=== PATIENT | female | born 1985 | race Caucasian/White ===

== ENCOUNTER 2020-04-27 16:20 | Emergency (ER) | payer OTHER, SELFPAY ==
[2020-04-27 16:29] VITALS: BP 120/78; PULSE 90; RESP 16; TEMP 36.5; O2SAT 98; BMI 28.3
--- NOTE | 2020-04-27 17:31 | ED_ITS ---
HPI - URI/Sore Throat General Chief Complaint: Upper Respiratory Symptoms <MARIE Valle - Last Filed: 04/27/20 17:45> Stated Complaint: cough, rash <MARIE Valle - Last Filed: 04/27/20 17:45> Time Seen by Provider: 04/27/20 17:21 <MARIE Valle - Last Filed: 04/27/20 17:45> Source: patient <MARIE Valle - Last Filed: 04/27/20 17:45> Mode of arrival: ambulatory <MARIE Valle - Last Filed: 04/27/20 17:45> Limitations: no limitations <MARIE Valle Last Filed: 04/27/20 17:45> History of Present Illness HPI Narrative: 34 y/o male presenting with dry cough for the last 3 days and raised patchy red rash on her abdomen. It is mildly itchy but not painful. She has had no fever, chills, SOB, chest pain. No known exposure to COVID-19. No new detergents, soaps, creams. No history of allergies. No throat swelling or wheezing. She has been taking benadryl with improvement but then the rash comes back. <MARIE Valle - Last Filed: 04/27/20 17:45> MD elicited complaint: cough <MARIE Valle - Last Filed: 04/27/20 17:45> Onset (ago): day(s) (3) <MARIE Valle Last Filed: 04/27/20 17:45> Consistency: intermittent and progressively worsening <MARIE Valle - Last Filed: 04/27/20 17:45> Severity: moderate <MARIE Valle Last Filed: 04/27/20 17:45> Able to tolerate fluids by mouth: Yes <MARIE Valle Last Filed: 04/27/20 17:45> Exacerbating factors: nothing <MARIE Valle Last Filed: 04/27/20 17:45> Relieving factors: OTC cold medicine <MARIE Valle Last Filed: 04/27/20 17:45> Associated symptoms: chills and rash <MARIE Valle - Last Filed: 04/27/20 17:45> Treatments prior to arrival: none <MARIE Valle - Last Filed: 04/27/20 17:45> Related Data Home Medications: Previous Rx's Medication Instructions Recorded famotidine [Pepcid] 40 mg PO DAILY #10 tab 04/27/20 loratadine [Claritin] 10 mg PO DAILY #10 tab 04/27/20 <MARIE Valle - Last Filed: 04/27/20 17:45> Allergies/Adverse Reactions: Allergies Allergy/AdvReac Type Severity Reaction Status Date / Time From DEPO-PROVERA Allergy Unknown RASH Uncoded 02/28/20 17:08 <MARIE Valle - Last Filed: 04/27/20 17:45> Review of Systems Review of Systems: Constitutional: No Fever, + Chills ENT/Mouth: No sore throat, No Rhinorrhea, No Swallowing Difficulty Eyes: No Eye Pain, No Swelling, No Redness Cardiovascular: No Chest Pain, No SOB, No Orthopnea, No Edema Respiratory: + Cough, No Sputum, No Wheezing, No dyspnea Gastrointestinal: No Nausea, No Vomiting, No Diarrhea, No abdominal Pain Genitourinary: No Dysuria, No Urinary Frequency, No Hematuria Musculoskeletal: No joint pain, + Myalgias (mild) Skin: NO Skin Lesions, + rash Neuro: No Weakness, No Numbness, No Dizziness, No Headache Psych: No Anxiety/Panic, No Depression Heme/Lymph: No Bruising, No Lymphadenopathy Endocrine: No Polyuria, No Polydipsia <MARIE Valle - Last Filed: 04/27/20 17:45> [facility] [place] Past Medical History Attestation statement: The following information was validated with the patient. <MARIE Valle - Last Filed: 04/27/20 17:45> Medical History: Medical History Hyperthyroidism <MARIE Valle - Last Filed: 04/27/20 17:45> Social History Social History: Social History Smoking Status: Never smoker Use of substances other than those prescribed or required for medical reasons: No Advance Directives: No Advance Directives Information Provided: Yes <MARIE Valle - Last Filed: 04/27/20 17:45> Physical Exam Vital Signs: Vital Signs: Last Vital Signs Temp 98.1 F 04/27/20 19:28 Pulse 93 04/27/20 19:28 Resp 16 04/27/20 19:28 BP 115/77 04/27/20 19:28 Pulse Ox 99 04/27/20 19:28 Body Mass Index 28.3 Appearance: Alert. Oriented X3. No acute distress. ENT: Pharynx normal. Neck: Normal inspection. Neck supple. CVS: Normal heart rate and rhythm. Pulses normal. Respiratory: No respiratory distress. Breath sounds normal. Abdomen: Soft and nontender. +BS x4. Skin: urticarial rash on trunk, no warmth or tenderness. no surrounding e rythema. Extremities: No lower extremity edema. Neuro: Oriented X 3. <MARIE Valle - Last Filed: 04/27/20 17:45> Vital Signs: Last Vital Signs Temp 98.1 F 04/27/20 19:28 Pulse 93 04/27/20 19:28 Resp 16 04/27/20 19:28 BP 115/77 04/27/20 19:28 Pulse Ox 99 04/27/20 19:28 Body Mass Index 28.3 <Jacqueline Green NP - Last Filed: 04/27/20 22:48> Course Course Course Narrative: 34 y/o female here with cough, mild myalgias, and urticarial rash on her trunk for the last 3 days. Likely viral in etiology. VSS and she appears well. Rash is not itchy so will hold off on steroids for now. Will continue treatment with benadryl and add claritin and pepcid for uriticaria. Will swab for covid/flu/rsv. Jacqueline MAP COLORER to assume care. <MARIE Valle - Last Filed: 04/27/20 17:45> patient's COVID test is positive. She was updated and verbalized understanding of state and Federal regulations for COVID-19 isolation. Patient understands that if her symptoms get worse that she must return to the emergency department or seek medical attention. Patient verbalized understanding of and agrees plan of care discharge home. <Jacqueline Green NP - Last Filed: 04/27/20 22:48> MDM - URI/Sore Throat Differential Diagnosis Differential diagnosis: Likely upper respiratory infection, sinusitis, viral infection, bronchitis, influenza and pharyngitis <MARIE Valle - Last Filed: 04/27/20 17:45> Lab Data Labs: Lab Results 04/27/20 Range/Units 17:47 Coronavirus (PCR) POSITIVE A (Negative) Influenza Type A (PCR) NEGATIVE (Negative) Influenza Type B (PCR) NEGATIVE (Negative) RSV RNA Qual (PCR) NEGATIVE (Negative) <MARIE Valle - Last Filed: 04/27/20 17:45> Lab Results 04/27/20 Range/Units 17:47 Coronavirus (PCR) POSITIVE A (Negative) Influenza Type A (PCR) NEGATIVE (Negative) Influenza Type B (PCR) NEGATIVE (Negative) RSV RNA Qual (PCR) NEGATIVE (Negative) <Jacqueline Green NP - Last Filed: 04/27/20 22:48> Critical Care Time Critical Care Time Critical Care Time: No <MARIE Valle - Last Filed: 04/27/20 17:45> Discharge Plan Discharge Clinical Impression: Viral infection, Urticaria, COVID-19 <MARIE Valle - Last Filed: 04/27/20 17:45> Patient Disposition: Home, Self-Care <MARIE Valle - Last Filed: 04/27/20 17:45> Instructions: Urticaria (ED), Viral Syndrome (ED) <MARIE Valle - Last Filed: 04/27/20 17:45> Additional Instructions: you are COVID-19 positive. Please maintain social isolation per Federal and State guidelines. Use Tylenol and Motrin as needed for pain management and muscle aches. Drink plenty of fluids. please use incentive spirometer every hour to promote lung function Continue to use benadryl every 6-8 hours as needed for rash. If rash starts to itch, use topical hydrocortizone cream. If the rash worsens despite treatment with medications or if you develop diffi culty breathing call your doctor right away or come back to the ER for further evaluation. Take over the counter cold and flu medications for your cough. <MARIE Valle - Last Filed: 04/27/20 17:45> Prescriptions: New famotidine [Pepcid] 40 mg tablet 40 mg PO DAILY Qty: 10 RF: 0 loratadine [Claritin] 10 mg tablet 10 mg PO DAILY Qty: 10 RF: 0 <MARIE Valle - Last Filed: 04/27/20 17:45> Stand Alone Forms: Work/School Release <MARIE Valle - Last Filed: 04/27/20 17:45> Interventions: ED Discharge Assessment Last Done: 04/27/20 19:19 <MARIE Valle - Last Filed: 04/27/20 17:45> Discharge Date/Time: 04/27/20 19:46 <MARIE Valle - Last Filed: 04/27/20 17:45>
[2020-04-27 18:32] LABS: Influenza A PCR NEGATIVE (Negative); Influenza B PCR NEGATIVE (Negative); Resp Syncy Virus RNA Qual PCR NEGATIVE (Negative)
[2020-04-27 18:52] LABS: SARS COV2 PCR INHOUSE POSITIVE (Negative)
[2020-04-27 19:28] VITALS: BP 115/77; PULSE 93; RESP 16; TEMP 36.7; O2SAT 99
== END 2020-04-27 19:46 | disposition home or self-care (01) ==
PROVIDERS: Physician Assistant; Emergency Provider Emergency Medicine; PCP Internal Medicine
DX: U07.1 COVID-19 (principal); R05 Cough; L50.9 Urticaria, unspecified
CPT/HCPCS: 0241U; 99283; 99284

== ENCOUNTER 2020-05-13 15:40 | Emergency (ER) | payer OTHER, SELFPAY ==
[2020-05-13 16:42] VITALS: BP 109/71; PULSE 92; RESP 16; TEMP 36.9; O2SAT 99; BMI 28.9
--- NOTE | 2020-05-13 17:15 | US_ITS ---
EXAMINATION: US ABDOMEN COMPLETE CLINICAL INFORMATION: Epigastric, left upper quadrant, and right upper quadrant abdominal pain. COMPARISON: CT abdomen pelvis 10/06/2017 TECHNIQUE: Real-time imaging of the abdominal viscera. FINDINGS: PANCREAS: Normal. ABDOMINAL AORTA: The proximal, mid, and distal segments are normal in caliber. INFERIOR VENA CAVA: Visualized portions are normal. LIVER: Normal. The liver is normal in size. The liver contour is normal. Parenchymal echogenicity is normal. No focal hepatic lesion. There is no intrahepatic biliary duct dilatation seen. GALLBLADDER: Normal. The gallbladder is physiologically distended without evidence of stones, sludge, polyps, wall thickening or pericholecystic fluid. COMMON BILE DUCT: Normal in caliber measuring 0.3 cm in diameter. RIGHT KIDNEY: Normal. No hydronephrosis. No renal calculi or focal parenchymal lesions. The kidney measures 11.3 cm in maximum dimension. LEFT KIDNEY: Normal. No hydronephrosis. No renal calculi or focal parenchymal lesions. The kidney measures 11.9 cm in maximum dimension. SPLEEN: Normal. The spleen measures 10.4 cm in maximum dimension. FREE FLUID: None. US/US abdomen complete IMPRESSION: Normal exam. A cause for the patient's abdominal pain has not been found.
[2020-05-13 17:35] VITALS: BP 122/81; PULSE 93; RESP 18; TEMP 36.8; O2SAT 99
--- NOTE | 2020-05-13 17:37 | ED.ABDPAIN ---
HPI - Abdominal Pain General Chief Complaint: Abdominal Pain Stated Complaint: abd pain Time Seen by Provider: 05/13/20 17:07 Source: patient Mode of arrival: ambulatory Limitations: no limitations History of Present Illness HPI narrative: 34yoF c PMHx of Hypothyroidism in COVID-19 presenting to the ED with complaints of epigastric abdominal pain with associated foot burping /nausea for the past 5 days. She has noticed worse with drinking Pepsi Soda. Denies fevers, vomiting, back pain, dysuria, vaginal bleeding/discharge. Related Data Previous Rx's Medication Instructions Recorded famotidine [Pepcid] 40 mg PO DAILY #10 tab 04/27/20 loratadine [Claritin] 10 mg PO DAILY #10 tab 04/27/20 alum-mag hydroxide-simeth [Maalox 10 ml PO TID PRN #30 ml 05/13/20 Maximum Strength] famotidine [Pepcid] 40 mg PO BID #20 tab 05/13/20 ondansetron HCl [Zofran] 4 mg PO Q8H PRN #10 tab 05/13/20 Allergies Allergy/AdvReac Type Severity Reaction Status Date / Time From DEPO-PROVERA Allergy Unknown RASH Uncoded 02/28/20 17:08 Review of Systems Review of Systems Constitutional : No Fever, No Chills Cardiovascular : No Chest Pain, No SOB Respiratory : No Cough, No Sputum Gastrointestinal : + Nausea, No Vomiting, No Diarrhea, + abdominal Pain, No Hematochezia, No Melena Genitourinary : No irregular bleeding, No Dysuria, No Urinary Frequency, No Hematuria,No Urinary Incontinence, No Urgency, No Flank Pain Musculoskeletal : No joint pain, No Myalgias, No Joint Swelling Skin : No Skin Lesions, No rash Neuro : No Weakness Yes all other systems are reviewed and are negative Physical Exam Vital Signs: Vital Signs: Last Vital Signs Temp 98.3 F 05/13/20 17:35 Pulse 93 05/13/20 17:35 Resp 18 05/13/20 17:35 BP 122/81 05/13/20 17:35 Pulse Ox 99 05/13/20 17:35 Body Mass Index 28.9 vital signs have been reviewed as normal and appeared to be correct. Blood pressure normal. Heart rate normal. Respiration rate normal. Temperature normal. Oxygen saturation normal. Appearance: Alert. Oriented X3. No acute distress. Head: Normal external exam. Normocephalic. Eyes: PERRLA. EOMI. Conjunctiva and sclera normal. Eyelids normal. ENT: Pharynx normal. Uvula midline. Moist mucous membranes. Neck: Normal inspection. Neck supple. FROM. No adenopathy. No meningeal signs. CVS: Normal heart rate and rhythm. Heart sound normal. No murmurs noted. Pulses normal throughout. Respiratory: No respiratory distress. Painless inspiration. Breath sounds normal. No wheezes/rales/rhonchi noted. Chest nontender. No accessory muscle usage noted or decreased air movement noted. Abdomen: Soft and TTP at upper/epigastric abdomen with guarding. No rigidity. Positive Eisenberg sign. Bowel sounds normal in all 4 quadrants. No distention noted. No organomegaly noted. No visible injury noted. No rebound tenderness. Negative Rovsing sign. Negative obturator's sign. Negative psoas sign. Back: No CVA tenderness. Full range of motion noted. Skin: Skin warm and dry. Normal skin color. Normal skin turgor. No rashes/lesions/lacerations noted. Extremities: Extremities exhibit normal range of motion. Extremities nontender. Neuro: Oriented X 3. No motor deficit. No sensory deficit. Reflexes normal. Course Course Course Narrative: 17:15PM - 34yoF c PMHx of Hypothyroidism in COVID-19 presenting to the ED with complaints of epigastric abdominal pain with associated foot burping /nausea for the past 5 days. - Concern for Cholecystitis vs pancreatitis vs GERD - Plan: Labs, UA, UHCG, ABD US, provided 4 mg of Zofran, Maalox/ viscous lidocaine and Pepcid then re-evaluate. Reevaluation(s) Reevaluation #1: Labs within normal limits. UA within normal limits no evidence of UTI. UHCG negative for . Ultrasound of abdomen and pelvis within normal limits no acute processes noted. Patient reports she feels better after the GI cocktail does not want any further imaging as I offered a CT scan of abdomen pelvis with IV contrast although patient is refusing to leave. Will DC home with symptomatic treatment along with instructions return if any new or worsening symptoms to follow up with primary care provider. Patient understands agrees with plan. Time: 20:23 [facility] - Abdominal Pain Medical Records Attestation: I reviewed the patient's medical records. Lab Data Attestation: I reviewed the patient's lab results. Result diagrams: 05/13/20 17:41 05/13/20 17:41 Labs: Lab Results 05/13/20 05/13/20 05/13/20 Range/Units 17:41 17:41 17:41 WBC 10.4 (4.8-10.8) X10*3/uL RBC 4.95 (4.20-5.50) X10*6/uL Hgb 14.9 (12.0-16.0) g/dl Hct 43.4 (37-47) % MCV 87.7 (80-98) fL MCH 30.1 (27.0-33.0) pg MCHC 34.3 (31.0-35.0) g/dl RDW 13.5 (11.0-16.0) % Plt Count 247 (160-400) X10*3/uL MPV 9.8 (9.4-12.3) fL Immature Gran % (Auto) 0.3 (0.0-0.4) % Neut % (Auto) 79.9 H (45-73) % Lymph % (Auto) 12.9 L (20-40) % [place] % (Auto) 6.4 (2-11) % Eos % (Auto) 0.3 (0-4) % Baso % (Auto) 0.2 (0-2) % Lymph # (Auto) 1.3 (1.2-4.9) X10*3/uL [place] # (Auto) 0.7 (0.1-1.2) X10*3/uL Eos # (Auto) 0.0 (0.0-0.4) X10*3/uL Baso # (Auto) 0.0 (0.0-0.2) X10*3/uL Abs Immat Gran (auto) 0.03 (0.00-0.03) X10*3/uL Absolute Neuts (auto) 8.3 (2.0-8.3) X10*3/uL Absolute Nucleated RBC 0.000 (0.0-0.012) X10*3/uL Nucleated RBC % (auto) 0.0 (0.0-0.2) /100WBC PT 12.5 (10.8-13.0) SEC INR 1.1 (0.9-1.1) Sodium 138 (135-145) mmol/L Potassium 4.7 (3.3-5.1) mmol/l Chloride 107 (96-108) mmol/L Carbon Dioxide 23 (22-29) mmol/L Anion Gap 13 (12-20) BUN 8 L (9-16) mg/dL Creatinine 0.68 (0.5-1.4) mg/dL Estim Creat Clear Calc 110.2 Estimated GFR > 60 Random Glucose 90 (60-115) mg/dL Calcium 8.8 (8.4-10.2) mg/dL Magnesium 2.2 (1.6-2.6) mg/dL Total Bilirubin 0.6 (0.0-1.0) mg/dL Direct Bilirubin 0.2 (0.0-0.5) mg/dL AST 15 (5-31) U/L ALT 14 (0-31) U/L Alkaline Phosphatase 64 (39-117) U/L Total Protein 7.6 (6.5-8.0) g/dL Albumin 4.4 (3.5-5.0) g/dL Lipase 4 L (8-78) U/L Urine Color Urine Appearance Urine pH (5.0-8.0) Ur Specific Niles (1.005-1.025) Urine Protein (NEG-TRACE) MG/DL Urine Glucose (UA) (NEG) MG/DL Urine Ketones (NEG) MG/DL Urine Blood (NEG) Urine Nitrite (NEG) Ur Leukocyte Esterase (NEG) Urine RBC (0) /HPF Urine WBC (0-4) /HPF Ur Squamous Epith Cells /LPF Urine Bacteria /LPF Urine Test (NEGATIVE) 05/13/20 Range/Units 17:41 WBC (4.8-10.8) X10*3/uL RBC (4.20-5.50) X10*6/uL Hgb (12.0-16.0) g/dl Hct (37-47) % MCV (80-98) fL MCH (27.0-33.0) pg MCHC (31.0-35.0) g/dl RDW (11.0-16.0) % Plt Count (160-400) X10*3/uL MPV (9.4-12.3) fL Immature Gran % (Auto) (0.0-0.4) % Neut % (Auto) (45-73) % Lymph % (Auto) (20-40) % [place] % (Auto) (2-11) % Eos % (Auto) (0-4) % Baso % (Auto) (0-2) % Lymph # (Auto) (1.2-4.9) X10*3/uL [place] # (Auto) (0.1-1.2) X10*3/uL Eos # (Auto) (0.0-0.4) X10*3/uL Baso # (Auto) (0.0-0.2) X10*3/uL Abs Immat Gran (auto) (0.00-0.03) X10*3/uL Absolute Neuts (auto) (2.0-8.3) X10*3/uL Absolute Nucleated RBC (0.0-0.012) X10*3/uL Nucleated RBC % (auto) (0.0-0.2) /100WBC PT (10.8-13.0) SEC INR (0.9-1.1) Sodium (135-145) mmol/L Potassium (3.3-5.1) mmol/l Chloride (96-108) mmol/L Carbon Dioxide (22-29) mmol/L Anion Gap (12-20) BUN (9-16) mg/dL Creatinine (0.5-1.4) mg/dL Estim Creat Clear Calc Estimated GFR Random Glucose (60-115) mg/dL Calcium (8.4-10.2) mg/dL Magnesium (1.6-2.6) mg/dL Total Bilirubin (0.0-1.0) mg/dL Direct Bilirubin (0.0-0.5) mg/dL AST (5-31) U/L ALT (0-31) U/L Alkaline Phosphatase (39-117) U/L Total Protein (6.5-8.0) g/dL Albumin (3.5-5.0) g/dL Lipase (8-78) U/L Urine Color YELLOW Urine Appearance CLEAR Urine pH 5.5 (5.0-8.0) Ur Specific Niles <= 1.005 (1.005-1.025) Urine Protein NEG (NEG-TRACE) MG/DL Urine Glucose (UA) NEG (NEG) MG/DL Urine Ketones NEG (NEG) MG/DL Urine Blood TRACE (NEG) Urine Nitrite NEG (NEG) Ur Leukocyte Esterase NEG (NEG) Urine RBC 0 (0) /HPF Urine WBC 0 (0-4) /HPF Ur Squamous Epith Cells TRACE /LPF Urine Bacteria NONE /LPF Urine Test NEGATIVE (NEGATIVE) Imaging Data US - abdomen: Attestation: I personally reviewed and interpreted this imaging study as follows: Radiologist's impression: IMPRESSION: Normal exam. A cause for the patient's abdominal pain has not been found. Discharge Plan Discharge Clinical Impression: GERD (gastroesophageal reflux disease) Qualifiers: Esophagitis presence: without esophagitis Qualified Code(s): K21.9 - Gastro-esophageal reflux disease without esophagitis Patient Disposition: Home, Self-Care Instructions: Gastroesophageal Reflux Disease (ED) Prescriptions: New alum-mag hydroxide-simeth [Maalox Maximum Strength] 400-400-40 mg/5 mL suspension 10 ml PO TID PRN (Reason: indigestion) Qty: 30 RF: 0 famotidine [Pepcid] 40 mg tablet 40 mg PO BID Qty: 20 RF: 0 ondansetron HCl [Zofran] 4 mg tablet 4 mg PO Q8H PRN (Reason: nausea and vomiting) Qty: 10 RF: 0 No Action famotidine [Pepcid] 40 mg tablet 40 mg PO DAILY Qty: 10 RF: 0 loratadine [Claritin] 10 mg tablet 10 mg PO DAILY Qty: 10 RF: 0 Referrals: Jeromy Tran MD [Primary Care Provider] - 2 days Print Language: Italian [facility] Past Medical History Attestation statement: The following information was validated with the patient. Medical History Hyperthyroidism Surgical History H/O tubal ligation Social History Social History Smoking Status: Never smoker Smoked in Last 30 Days: No Use of substances other than those prescribed or required for medical reasons: No Advance Directives: No Advance Directives Information Provided: No
[2020-05-13] MEDS: Famotidine 20 MG TABLET PO (17:45)
[2020-05-13] MEDS: Lidocaine HCl Viscous 2 % 15 ML SOLUTION MUCOUS MEM (17:45)
[2020-05-13] MEDS: Magnesium Hydrox/Alum Hydrox 30 ML ORAL.SUSP 15 ML PO (17:45)
[2020-05-13 17:49] LABS: Basophils Percent Auto 0.2 % (0-2); Eosinophils Percent Auto 0.3 % (0-4); Hematocrit 43.4 % (37-47); Hemoglobin 14.9 g/dl (12.0-16.0); Imm Gran Abs Auto 0.03 X10*3/uL (0.00-0.03); Imm Gran Pct Auto 0.3 % (0.0-0.4); Lymphocytes Absolute Auto 1.3 X10*3/uL (1.2-4.9); Lymphocytes Percent Auto 12.9 % (20-40); MANUAL DIFF FLAG NO; Mean Corpuscular HGB Conc 34.3 g/dl (31.0-35.0); Mean Corpuscular Hemoglobin 30.1 pg (27.0-33.0); Mean Corpuscular Volume 87.7 fL (80-98); Mean Platelet Volume 9.8 fL (9.4-12.3); Monocytes Absolute Auto 0.7 X10*3/uL (0.1-1.2); Monocytes Percent Auto 6.4 % (2-11); Neutrophils Absolute Auto 8.3 X10*3/uL (2.0-8.3); Neutrophils Percent Auto 79.9 % (45-73); Platelet Count 247 X10*3/uL (160-400); Red Blood Count 4.95 X10*6/uL (4.20-5.50); Red Cell Distribution Width 13.5 % (11.0-16.0); White Blood Count 10.4 X10*3/uL (4.8-10.8)
[2020-05-13 17:51] LABS: Glucose Urine UA NEG (NEG); Leukocyte Esterase Urine NEG (NEG); Nitrite Urine NEG (NEG); PH 5.5 (5.0-8.0); Specific Gravity - Urine <= 1.005 (1.005-1.025); UPreg QC Valid YES; Urine Blood TRACE (NEG); Urine Ketones NEG (NEG); Urine Pregnancy NEGATIVE (NEGATIVE); Urine Protein NEG (NEG-TRACE)
[2020-05-13 17:56] LABS: Appearance Urine CLEAR; Color Urine YELLOW
[2020-05-13 17:58] LABS: INTERNATIONAL NORM RATIO 1.1 (0.9-1.1); Prothrombin Time 12.5 SEC (10.8-13.0)
[2020-05-13 18:07] LABS: RBC Urine 0 /HPF (0); Squamous Epithelial Cell Urine TRACE /LPF; WBC Urine 0 /HPF (0-4)
[2020-05-13 18:16] LABS: Alanine Aminotransferase 14 U/L (0-31); Albumin Level 4.4 g/dL (3.5-5.0); Alkaline Phosphatase 64 U/L (39-117); Anion Gap 13 (12-20); Aspartate Amino Transferase 15 U/L (5-31); Bilirubin Direct 0.2 mg/dL (0.0-0.5); Bilirubin Total 0.6 mg/dL (0.0-1.0); Blood Urea Nitrogen 8 mg/dL (9-16); Calcium 8.8 mg/dL (8.4-10.2); Carbon Dioxide 23 mmol/L (22-29); Chloride 107 mmol/L (96-108); Creatinine Clr Calc Pharmacy 110.2; Estimated Glomerular Filt Rate > 60; Glucose Random 90 mg/dL (60-115); Lipase 4 U/L (8-78); Magnesium 2.2 mg/dL (1.6-2.6); Potassium 4.7 mmol/l (3.3-5.1); Sodium 138 mmol/L (135-145); Total Protein 7.6 g/dL (6.5-8.0)
== END 2020-05-13 20:34 | disposition home or self-care (01) ==
PROVIDERS: Physician Assistant Medical; Emergency Provider Emergency Medicine Emergency Medical Services; PCP Internal Medicine
DX: K21.9 Gastro-esophageal reflux disease without esophagitis (principal); Z86.19 Personal history of other infectious and parasitic diseases; E03.9 Hypothyroidism, unspecified
CPT/HCPCS: 36415; 76700; 80048; 80076; 81001; 81025; 83690; 83735; 85025; 85610; 99284

== ENCOUNTER 2024-11-26 16:43 | Emergency (ER) | payer OTHER, SELFPAY ==
[2024-11-26 17:12] VITALS: BP 105/71; PULSE 82; RESP 18; TEMP 36.2; O2SAT 98; BMI 28.0
--- NOTE | 2024-11-26 17:13 | ED_ITS ---
HPI - General Adult General Chief complaint: Skin/Abscess/Foreign Body Stated complaint: itching,?poison pauline Time Seen by Provider: 11/26/24 17:18 Source: patient and family (patient's ) Mode of arrival: ambulatory Limitations: no limitations History of Present Illness ED Provider: Maria Alejandra Da Silva PA-C HPI narrative: Patient is a 39 year old assigned female at with a history of hyperthyroidism presenting to the emergency department today with poison pauline. Patient states that first her son got it, then her caught it from him, and now over the last week she has had it on her legs and the itching is worsening. Patient denies any dizziness, lightheadedness, abdominal pain, nausea, vomiting, fever, chills, blurry vision, double vision, loss of vision, chest pain, difficulty breathing, shortness of breath, back pain, night sweats, pain with urination, increased urinary frequency, increased urinary urgency, blood in her urine or stool, syncope or a near syncopal episode, recent trauma or falls, bowel incontinence, bladder incontinence, or any other complaints at this time. Onset (ago): week(s) (1) Relieving factors: none Exacerbating factors: none Associated symptoms: rash Related Data Previous Rx's ?Medication ?Instructions ?Recorded famotidine 40 mg tablet (Pepcid) 40 mg PO DAILY #10 tabs 04/27/20 loratadine 10 mg tablet (Claritin) 10 mg PO DAILY #10 tabs 04/27/20 aluminum-mag hydroxide-simethicone 10 ml PO TID PRN indigestion #30 mL 05/13/20 400 mg-400 mg-40 mg/5 mL oral susp (Maalox Maximum Strength) famotidine 40 mg tablet (Pepcid) 40 mg PO BID gerd #20 tabs 05/13/20 ondansetron HCl 4 mg tablet 4 mg PO Q8H PRN nausea and 05/13/20 (Zofran) vomiting #10 tabs prednisone 20 mg tablet See Rx Instructions .Route 11/26/24 .COMPLEX 9 days #18 tabs Allergies Allergy/AdvReac Type Severity Reaction Status Date / Time From DEPO-PROVERA Allergy Unknown RASH Uncoded 11/26/24 17:15 Review of Systems Constitutional: Constitutional: Reports no additional constitutional complaints, Denies chills, Denies fever(s) and Denies night sweats Eyes: Eyes: Reports no additional eye complaints, Denies blurry vision, Denies change in vision, Denies diplopia, Denies eye discharge, Denies loss of vision and Denies eye pain ENT: Denies dizziness Cardiovascular: Cardiovascular: Reports no additional cardiovascular complaints, Denies chest pain, Denies lightheadedness, Denies Loss of Consciousness and Denies dyspnea Respiratory: Respiratory: Reports no additional respiratory complaints and Denies dyspnea Gastrointestinal: Gastrointestinal: Reports no additional gastrointestinal complaints, Denies abdominal pain, Denies melena, Denies hematochezia, Denies change in bowel habits and Denies change in stool character Genitourinary: Genitourinary: Denies hematuria, Denies urinary frequency, Denies dysuria, Denies urinary incontinence, Denies urinary hesitancy and Denies urinary urgency Musculoskeletal: Musculoskeletal: Reports no additional musculoskeletal complaints, Denies numbness and Denies tingling Integumentary/Breasts: Comments: bilateral lower leg rash / poison pauline Neurologic: Denies dizziness, Denies loss of vision, Denies numbness and Denies tingling Psychiatric: Psychiatric: Reports no additional psychiatric complaints Endocrine: Endocrine: Reports no additional endocrine complaints Hematologic/Lymphatic: Hematologic/Lymphatic: Reports no additional hematologic/lymphatic complaints Allergic/Immunologic: Allergic/Immunologic: Reports no additional allergic/immunologic complaints [facility] Past Medical History Attestation statement: The following information was validated with the patient. (patient's validated all information) Source: old records reviewed, obtained from family (patient's provided additional history and confirmed the history provided by the patient) and nursing notes reviewed Medical History Hyperthyroidism Surgical History H/O tubal ligation Social History Social History Advance Directives: No Advance Directives Information Provided: No Physical Exam ED Vital Signs: Vital Signs - 24 hr 11/26/24 17:12 11/26/24 17:41 Temperature 97.1 F 97.1 F Pulse Rate 82 82 Respiratory Rate 18 18 Blood Pressure 105/71 105/71 Pulse Oximetry 98 98 Oxygen Delivery Method Room Air Room Air BMI result Body Mass Index 28.0 Const General: cooperative, no acute distress, alert and awake Nutritional Appearance: well nourished Orientation/consciousness: patient oriented x3 HENMT Head: Yes normal to inspection and Yes atraumatic Ears: hearing grossly normal bilaterally and external ears normal General nose exam: Normal external nose present, no nasal discharge noted and no epistaxis Face and sinus: Yes normal facial exam, No abrasion and No laceration Mouth: Normal oral and palatal mucosa present, no drooling and no muffled voice Eyes General: appearance normal, both eyes and all related structures Periorbital: periorbital findings normal Eyelids: Yes eyelids normal Conjunctivae: conjunctivae normal Pupils: Equal, round and reactive pupils present EOM: EOMs intact bilaterally Neck Neck: Yes normal visual inspection, Yes full ROM and Yes no lymphadenopathy Resp Effort & Inspection: normal respiratory effort and able to speak in complete sentences Neuro General: patient oriented x3, moves all extremities and CN's II-XI intact bilaterally Cranial nerves: Yes Equal, round and reactive pupils present Cognition (Neuro): normal cognition Extrem Other: bilateral lower leg rash - consistent with poison pauline General: Yes full ROM and Yes capillary refill normal Psych Appearance: grossly normal Mental Status: mental status grossly normal Affect: normal affect Attitude: cooperative Thought process: Normal thought process present Thought content: Normal thought content present Insight: Good insight present (Psych) Medical Decision Making Medical Decision Making MDM Narrative: Patient is a 39 year old assigned female at with a history of hyperthyroidism presenting to the emergency department today with poison pauline. Patient's physical exam was as noted in the physical exam portion of this note. Patient's lower legs appear to have poison pauline. I explained my physical exam findings to the patient and the patient's . I answered all questions asked by the patient and the patient's . I stressed the importance of the patient taking her medication as directed (either prescribed or as the over the counter packaging recommends). I stressed the importance of the patient following up with her primary care provider. I stressed the importance of the patient returning to the emergency department immediately if her symptoms were to worsen or if she were to develop any dizziness, shortness of breath, difficulty breathing, chest pain, blurry vision, loss of vision, nausea, vomiting, abdominal pain, fever, chills, back pain, or any other complaints. Patient and the patient's verbalized agreement and understanding with this treatment plan and discharge. Differential Diagnosis Differential Diagnoses: The differential diagnosis associated with the presentation includes Poison pauline Contact dermatitis Admission/Observation Consideration of admission/observation: Escalation of care including admission/observation considered Patient would have been admitted to the hospital had her clinical presentation warranted hospital admission. Independent Historian Clinical information obtained from an independent historian. History obtained from or confirmed by: Spouse (Patient's provided additional history and confirmed the history provided by the patient. ) Discharge Plan Discharge Clinical Impression: Dermatitis due to plants, including poison pauline, sumac, and oak Patient Disposition: Home, Self-Care Instructions: Contact Dermatitis (DC) Additional Instructions: Take your medication as prescribed. WASH YOUR SHEETS / LINEN / COUCH CUSHIONS. Follow up with your primary care provider. Return to the emergency department immediately if your symptoms worsen or if you develop any numbness, tingling, dizziness, shortness of breath, difficulty breathing, chest pain, blurry vision, loss of vision, nausea, vomiting, abdominal pain, fever, chills, back pain, or any other complaints. Please see the information below about our Patient Portal. If you are not yet enrolled in the [facility] Patient Portal, you will receive an enrollment email invitation following your visit to any [facility] setting. You may also self-enroll in the Patient Portal by visiting our website: [email or web address] The following information is required to access the Patient Portal: - Your [facility] Medical Record Number - Your personal home email address (must match what is in your electronic medical record, Registration staff can assist with this) - Name - Date of Capabilities of the Patient Portal: - Message some providers - View upcoming appointments - Access your health summary, medical history, and visit history - View current conditions and allergies - View procedure and lab results - View your medications, including guidelines, side effects, and precautions - Complete pre-appointment questionnaires requested by your provider - Ready summary reports of your office visits and procedures To access the Patient Portal Mobile Luisa, follow these directions: - Search [employer] in the Luisa Store or Google Play Store - Download the Luisa - Search for [facility] - Enter your login/password Prescriptions: New prednisone 20 mg tablet See Rx Instructions .ROUTE .COMPLEX 9 Days Qty: 18 0RF Rx Instructions: 20 mg orally, Take 3 tablets for 3 days THEN; Take 2 tablets for 3 days THEN; Take 1 tablet for 3 days No Action famotidine [Pepcid] 40 mg tablet 40 mg PO DAILY Qty: 10 0RF loratadine [Claritin] 10 mg tablet 10 mg PO DAILY Qty: 10 0RF alum-mag hydroxide-simeth [Maalox Maximum Strength] 400-400-40 mg/5 mL suspension 10 ml PO TID PRN (Reason: indigestion) Qty: 30 0RF famotidine [Pepcid] 40 mg tablet 40 mg PO BID Qty: 20 0RF ondansetron HCl [Zofran] 4 mg tablet 4 mg PO Q8H PRN (Reason: nausea and vomiting) Qty: 10 0RF Referrals: [facility] [Provider Group] (Call to establish and follow up with a primary care provider. If you already have a primary care provider, please follow up with them.) [facility] [Provider Group] (Call to establish and follow up with a primary care provider. If you already have a primary care provider, please follow up with them.) [facility] Primary Care [facility] [Provider Group] (Call to establish and follow up with a primary care provider. If you already have a primary care provider, please follow up with them.) [facility] [Provider Group] (Call to establish and follow up with a primary care provider. If you already have a primary care provider, please follow up with them.) Interventions: ED Discharge Assessment Last Done: 11/26/24 17:41 Discharge Date/Time: 11/26/24 17:41 Print Language: Qatari
[2024-11-26 17:41] VITALS: BP 105/71; PULSE 82; RESP 18; TEMP 36.2; O2SAT 98
== END 2024-11-26 17:41 | disposition home or self-care (01) ==
PROVIDERS: Emergency Provider Internal Medicine
DX: L23.7 Allergic contact dermatitis due to plants, except food (principal)
CPT/HCPCS: 99282; 99283

== ENCOUNTER 2024-12-30 15:37 | Emergency (ER) | payer OTHER, SELFPAY ==
[2024-12-30 16:05] VITALS: BP 115/80; PULSE 118; RESP 16; TEMP 37.7; O2SAT 100; BMI 26.6
--- NOTE | 2024-12-30 16:06 | ED_ITS ---
HPI - Fever General Chief Complaint: General Medical Stated Complaint: Fever since yesterday, headache Time Seen by Provider: 12/30/24 17:37 Source: patient Mode of arrival: ambulatory Limitations: no limitations History of Present Illness ED Provider: Maria Alejandra Da Silva PA-C HPI Narrative: Patient is a 39 year old assigned female at with a history of hyperthyroidism presenting to the emergency department today with body aches, fever, chills, and a headache. Patient states that over the last day she has had a fever, chills, body aches, and headaches. Patient denies any dizziness, li ghtheadedness, abdominal pain, nausea, vomiting, blurry vision, double vision, loss of vision, chest pain, difficulty breathing, shortness of breath, back pain, night sweats, pain with urination, increased urinary frequency, increased urinary urgency, blood in her urine or stool, syncope or a near syncopal episode, recent trauma or falls, bowel incontinence, bladder incontinence, or any other complaints at this time. Related Data Previous Rx's ?Medication ?Instructions ?Recorded famotidine 40 mg tablet (Pepcid) 40 mg PO DAILY #10 ta bs 04/27/20 loratadine 10 mg tablet (Claritin) 10 mg PO DAILY #10 tabs 04/27/20 aluminum-mag hydroxide-simethicone 10 ml PO TID PRN in digestion #30 mL 05/13/20 400 mg-400 mg-40 mg/5 mL oral susp (Maalox Maximum Strength) famotidine 40 mg tablet (Pepcid) 40 mg PO BID gerd #20 tabs 05/13/20 ondansetron HCl 4 mg tablet 4 mg PO Q8H PRN nausea and 05/13/20 (Zofran) vomiting #10 tabs prednisone 20 mg tablet See Rx Instructions .Route 0 11/26/24 .COMPLEX 9 days #18 tabs penicillin V potassium 500 mg 500 mg PO BID 10 days #2 0 tabs 12/30/24 tablet Allergies Allergy/AdvReac Type Severity Reaction Status Date / Time From DEPO-PROVERA Allergy Unknown RASH Uncoded 12/30/24 16:07 Review of Systems Constitutional: Constitutional: Reports no additional constitutional complaints, Reports body ache(s), Reports chills, Reports fever(s), Reports headache(s) and Denies night sweats Eyes: Eyes: Reports no additional eye complaints, Denies blurry vision, Denies change in vision, Denies diplopia, Denies eye discharge, Denies loss of vision and Denies eye pain ENT: Denies dizziness and Reports headache(s) Cardiovascular: Cardiovascular: Reports no additional cardiovascular complaints, Denies chest pain, Denies lightheadedness, Denies Loss of Consciousness and Denies dyspnea Respiratory: Respiratory: Reports no additional respiratory complaints and Denies dyspnea Gastrointestinal: Gastrointestinal: Reports no additional gastrointestinal complaints, Denies abdominal pain, Denies melena, Denies hematochezia, Denies change in bowel habits and Denies change in stool character Genitourinary: Genitourinary: Denies hematuria, Denies urinary frequency, Denies dysuria, Denies urinary incontinence, Denies urinary hesitancy and Denies urinary urgency Musculoskeletal: Musculoskeletal: Reports no additional musculoskeletal complaints, Denies numbness and Denies tingling Neurologic: Denies dizziness, Reports headache(s), Denies loss of vision, Denies numbness and Denies tingling Psychiatric: Psychiatric: Reports no additional psychiatric complaints Endocrine: Endocrine: Reports no additional endocrine complaints Hematologic/Lymphatic: Hematologic/Lymphatic: Reports no additional hematologic/lymphatic complaints Allergic/Immunologic: Allergic/Immunologic: Reports no additional allergic/immunologic complaints [facility] Past Medical History Attestation statement: The following information was validated with the patient. Source: old records reviewed and nursing notes reviewed Medical History Hyperthyroidism Surgical History H/O tubal ligation Social History Social History Advance Directives: No Advance Directives Information Provided: No Do you have a plan to hurt others: No Plan Physical Exam Vital Signs: Vital Signs: Last Vital Signs Temp 99.8 F 12/30/24 17:53 Pulse 118 H 12/30/24 17:53 Resp 16 12/30/24 17:53 BP 115/80 12/30/24 17:53 Pulse Ox 100 12/30/24 17:53 O2 Del Method Room Air 12/30/24 17:53 BMI result Body Mass Index 26.6 Const: General: cooperative, no acute distress, alert and awake Nutritional Appearance: well nourished Orientation/consciousness: patient oriented x3 HEENT: Head: Yes normal to inspection and Yes atraumatic Ears: hearing grossly normal bilaterally and external ears normal General nose exam: Normal external nose present, no nasal discharge noted and no epistaxis Face and sinus: Yes normal facial exam, No abrasion and No laceration Mouth: Normal oral and palatal mucosa present, no drooling and no muffled voice Eyes: General: appearance normal, both eyes and all related structures Periorbital: periorbital findings normal Eyelids: Yes eyelids normal Conjunctivae: conjunctivae normal Pupils: Equal, round and reactive pupils present EOM: EOMs intact bilaterally Neck: Neck: Yes normal visual inspection, Yes full ROM and Yes no lymphadenopathy Resp: Effort & Inspection: normal respiratory effort and able to speak in complete sentences Neuro: General: patient oriented x3, moves all extremities and CN's II-XI intact bilaterally Cranial nerves: Yes Equal, round and reactive pupils present Cognition (Neuro): normal cognition Extrem: General: Yes normal to inspection, Yes full ROM and Yes capillary refill normal Psych: Appearance: grossly normal Mental Status: mental status grossly normal Affect: normal affect Attitude: cooperative Thought process: Normal thought process present Thought content: Normal thought content present Insight: Good insight present (Psych) Course Course Course Narrative: 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 Deferred additional HPI, ROS, PE to primary provider. 39 yo female with no known medical history here with complaints of fever 101, headache, sore throat, body aches, congestion since yesterday. Will obtain viral testing, strep testing. Low grade fever, tachycardia in triage. Medical Decision Making Medical Decision Making [facility] Narrative: Patient is a 39 year old assigned female at with a history of hyperthyroidism presenting to the emergency department today with body aches, fever, chills, and a headache. Patient's physical exam was unremarkable. Patient's strep test was positive. Patient's COVID-19, influenza, and RSV tests were negative. I explained my physical exam findings as well as all test results to the patient. I answered all questions asked by the patient. I stressed the importance of the patient taking her medication as directed (either prescribed or as the over the counter packaging recommends). I stressed the importance of the patient following up with her primary care provider. I stressed the importance of the patient returning to the emergency department immediately if her symptoms were to worsen or if she were to develop any dizziness, shortness of breath, difficulty breathing, chest pain, blurry vision, loss of vision, nausea, vomiting, abdominal pain, fever, chills, back pain, or any other complaints. Patient verbalized agreement and understanding with this treatment plan and discharge. Differential Diagnosis Differential Diagnoses: The differential diagnosis associated with the presentation includes Strep pharyngitis Sore throat Viral illness COVID-19 Influenza RSV Admission/Observation Consideration of admission/observation: Escalation of care including admission/observation considered Patient would have been admitted to the hospital had her work up had any findings where hospital admission was appropriate and her clinical presentation warranted hospital admission. Lab Data [facility] Lab Attestation statement: I reviewed the patient's lab results. My interpretation of these results are in the [facility] Rationale portion of this note. Labs: Lab Results 12/30/24 Range/Units 16:32 Influenza Type A (PCR) NEGATIVE (Negative) Influenza Type B (PCR) NEGATIVE (Negative) RSV RNA Qual (PCR) NEGATIVE (Negative) SARS-CoV-2 RNA (RT-PCR) NEGATIVE (Negative) S. pyogenes GrpA NOE Positive A (Negative) Prescription Management I considered prescription management with: Antibiotic (patient prescribed an antibiotic for strep pharyngitis.) Discharge Plan Discharge Clinical Impression: Strep throat Patient Disposition: Home, Self-Care Instructions: Strep Throat (DC) Additional Instructions: Take your medication as prescribed. After you are on your antibiotic for 24 hours - replace your toothbrush to avoid re-infection. Follow up with a primary care provider. Return to the emergency department immediately if your symptoms worsen or if you develop any numbness, tingling, dizziness, shortness of breath, difficulty breathing, chest pain, blurry vision, loss of vision, nausea, vomiting, abdominal pain, fever, chills, back pain, or any other complaints. If you do not have a primary care provider - call any of the below numbers to establish and follow up with a primary care provider. [facility] Primary Care ([place]) [phone] [place], [place] [address] [place], [address] [facility] Primary Care ([address] [place]) [phone] [address] [facility] [address], [address] [facility], [address] [facility] Primary Care ([address] [place]) [phone] [address] [facility] [address], [address] [facility], [address] [facility] Primary Care ([place]) [phone] [place] [address], [address] [facility], [address] [facility] Family Medicine [phone] [facility], [address] Please see the information below about our Patient Portal. If you are not yet enrolled in the [facility] Patient Portal, you will receive an enrollment email invitation following your visit to any [facility] setting. You may also self-enroll in the Patient Portal by visiting our website: [email or web address] The following information is required to access the Patient Portal: - Your [facility] Medical Record Number - Your personal home email address (must match what is in your electronic medical record, Registration staff can assist with this) - Name - Date of Capabilities of the Patient Portal: - Message some providers - View upcoming appointments - Access your health summary, medical history, and visit history - View current conditions and allergies - View procedure and lab results - View your medications, including guidelines, side effects, and precautions - Complete pre-appointment questionnaires requested by your provider - Ready summary reports of your office visits and procedures To access the Patient Portal Mobile Luisa, follow these directions: - Search [employer] in the Luisa Store or Informed [employer] Store - Download the Luisa - Search for [facility] - Enter your login/password Prescriptions: New penicillin V potassium 500 mg tablet 500 mg PO BID 10 Days Qty: 20 0RF No Action famotidine [Pepcid] 40 mg tablet 40 mg PO DAILY Qty: 10 0RF loratadine [Claritin] 10 mg tablet 10 mg PO DAILY Qty: 10 0RF alum-mag hydroxide-simeth [Maalox Maximum Strength] 400-400-40 mg/5 mL suspension 10 ml PO TID PRN (Reason: indigestion) Qty: 30 0RF famotidine [Pepcid] 40 mg tablet 40 mg PO BID Qty: 20 0RF ondansetron HCl [Zofran] 4 mg tablet 4 mg PO Q8H PRN (Reason: nausea and vomiting) Qty: 10 0RF prednisone 20 mg tablet See Rx Instructions .ROUTE .COMPLEX 9 Days Qty: 18 0RF Rx Instructions: 20 mg orally, Take 3 tablets for 3 days THEN; Take 2 tablets for 3 days THEN; Take 1 tablet for 3 days Interventions: ED Discharge Assessment Last Done: 12/30/24 17:53 Discharge Date/Time: 12/30/24 17:54 Print Language: Algerian
[2024-12-30 16:52] LABS: IDNOW Serial# 6674DD1D; Strep A Nucleic Acid Positive (Negative)
--- NOTE | 2024-12-30 17:00 | PC.NURSE ---
Addendum entered by Kirsten Cerrato RN 12/30/24 17:01: Patient is a 39 yo female with a medical history as listed below here with complaints of viral symptoms, fever 101, headache, sore throat, body aches, congestion since yesterday. Alert and oriented. Lungs clear bilat. Respirations even and non-labored. Abdomen soft, distended, non-tender with positive bowel sounds. Positive pedal pulses with no edema. Original Note: Medical History Hyperthyroidism
[2024-12-30 17:17] LABS: Resp Syncy Virus RNA Qual PCR NEGATIVE (Negative); SARS COV2 PCR INHOUSE NEGATIVE (Negative)
[2024-12-30 17:53] VITALS: BP 115/80; PULSE 118; RESP 16; TEMP 37.7; O2SAT 100
== END 2024-12-30 17:54 | disposition home or self-care (01) ==
PROVIDERS: Nurse Practitioner Family; Emergency Provider Emergency Medicine
DX: J02.0 Streptococcal pharyngitis (principal); R50.9 Fever, unspecified; R51.9 Headache, unspecified; Z03.818 Encounter for observation for suspected exposure to other biological agents ruled out
CPT/HCPCS: 87637; 87651; 99282; 99283